=== PATIENT | female | born 1965 | race Caucasian/White ===

== ENCOUNTER 2016-09-02 07:28 | Emergency (ER) ==
[2016-09-02 07:38] VITALS: BP 130/90
[2016-09-02 08:11] LABS: MANUAL DIFF NEEDED? NO; URINE CULTURE PL NEEDED? NO; URINE SOURCE VOIDED
[2016-09-02 08:13] LABS: BASO% 0.8 % (0.0-0.8); EOS# 0.29 X1000 (0.0-0.7); EOS% 3.5 % (0.0-10.0); HEMATOCRIT 41.6 % (37.0-47.0); HEMOGLOBIN 14.5 g/dL (12.0-16.0); IMM GRAN# 0.08 X1000 (0.0-0.04); LYMPH# 1.32 X1000 (1.2-3.4); LYMPH% 15.8 % (20.5-51.1); MCH 34.1 PG (27-31); MCHC 34.9 g/dL (33-37); MCV 97.9 FL (81-99); MONO# 0.68 X1000 (0.11-0.59); MONO% 8.1 % (1.7-9.3); MPV 8.3 FL (7.4-10.4); NEUT% 70.8 % (42.2-75.2); PLT 351 X1000 (130-400); RBC 4.25 XMIL (4.2-5.4)
[2016-09-02 08:22] LABS: UR AMPHETAMINES QUAL NONE DETECTED (NONE DETECT); UR BARBITUATES QUAL NONE DETECTED (NONE DETECT); UR BENZODIAZEPIN QUAL NONE DETECTED (NONE DETECT); UR CANNABINOIDS QUAL NONE DETECTED (NONE DETECT); UR COCAINE QUAL NONE DETECTED (NONE DETECT); UR MDMA QUAL NONE DETECTED (NONE DETECT); UR METHADONE QUAL NONE DETECTED (NONE DETECT); UR METHAMPHETAMINE QUAL NONE DETECTED (NONE DETECT); UR OPIATES QUAL NONE DETECTED (NONE DETECT); UR OXYCODONE QUAL NONE DETECTED (NONE DETECT); UR PCP QUAL NONE DETECTED (NONE DETECT); UR TCA QUAL NONE DETECTED (NONE DETECT)
[2016-09-02 08:25] LABS: BILIRUBIN URINE NEGATIVE (NEGATIVE); BLOOD URINE NEGATIVE (NEGATIVE); CLARITY CLEAR (CLEAR); COLOR YELLOW; GLUCOSE URINE NEGATIVE (NEGATIVE); LEUKOCYTES URINE NEGATIVE (NEGATIVE); NITRITE URINE NEGATIVE (NEGATIVE); PROTEIN URINE NEGATIVE (NEGATIVE); SP GRAVITY URINE 1.015; UROBILINOGEN URINE NORMAL
[2016-09-02 08:26] LABS: URINE EPITHELIAL CELLS <10 /HPF (<10); URINE WBC <10 /HPF (<10)
[2016-09-02 08:37] LABS: ACETAMINOPHEN < 1.2 ug/mL (10-30); AGAP 11; ALBUMIN 5.2 g/dL (3.5-5.0); ALKALINE PHOSPHATASE 79 U/L (32-104); BUN 6 mg/dL (8-22); CALCIUM 10.4 mg/dL (8.8-10.2); CHLORIDE 90 mmol/L (98-107); COSMO 256; GOT 33 U/L (10-30); GPT 16 U/L (10-36); POTASSIUM 3.4 mmol/L (3.5-5.1); SODIUM 129 mmol/L (136-145); TCO2 29 mmol/L (25-35); TOTAL PROTEIN 8.3 g/dL (6.3-8.3)
[2016-09-02] MEDS ORDERED: KLOR-CON PO ONE (08:54)
--- NOTE | 2016-09-02 09:00 | PROVIDER DOCUMENTATION ---
HPI-General Adult - General Chief Complaint: Withdrawals Stated Complaint: OPIATE WITHDRAWLS Time Seen by Provider: 09/02/16 07:32 Source: patient Allergies/Adverse Reactions: Patient Allergies Allergy/AdvReac Type Severity Reaction Status Date / Time No Known Allergies Allergy Verified 09/02/16 07:38 Home Medications: Levothyroxine Sodium [Synthroid] 200 mcg PO DAILY 09/02/16 Sertraline HCl [Zoloft] 200 mg PO DAILY 09/02/16 Topiramate [Topamax] 50 mg PO DAILY 09/02/16 - History of Present Illness -Gen Adult Nature of Presenting Problems: patient is a 51 y/o F that presents with withdrawaling from Lortabs. Patient 6 days ago ran out, has been taking Lortabs between 10 to 20 years. She reports alexia between , her dentist, and buying them in the street. She stopped them 6 days ago, since has had nausea,abdominal pain, weakness, and tremors. wants help to get off them permanently Location of Pain/Injury: reports: generalized Pain Radiation: reports: no radiation Quality of Pain: reports: aching Severity: reports: moderate Onset/Duration: reports: gradual, 6 days ago Timing: reports: still present, constant Context/Activities at Onset: reports: other (withdrawal from Lortabs) Modifying Factors: improves with: nothing Associated Symptoms: reports: nausea, weakness, other (tremors). denies: back/ neck pain, diarrhea, dizziness, fever/chills, genitourinary problems, vomiting Similar Symptoms Previously?: No Recently seen or treated by another doctor?: No Review of Systems - Adult - REVIEW OF SYSTEMS - ADULT Constitutional: denies: chills, fever Eyes: denies: decreased vision, blurred vision, double vision Ears, Nose, Mouth & Throat: denies: ear pain, sinus problem, throat pain, throat swelling Cardiovascular: denies: chest pain, palpitations, syncope Respiratory: denies: cough, shortness of breath, wheezing Gastrointestinal: reports: abdominal pain, nausea. denies: diarrhea, vomiting Genitourinary: denies: dysuria, frequency, hematuria Musculoskeletal: reports: muscle aches, muscle weakness Integumentary: reports: no symptoms reported Neurological: reports: tremors. denies: numbness, slurred speech Psychiatric: reports: no symptoms reported Endocrine: reports: no symptoms reported Hematologic/Lymphatic: reports: no symptoms reported Allergic/Immunologic: reports: no symptoms reported All Other Systems: Reviewed and Negative Past History - Adult - PAST MEDICAL HISTORY-ADULT Review of Records: reports: Nursing Assessment Review, Medications Reviewed Respiratory: reports: COPD Musculoskeletal: reports: fibromyalgia Neurological: reports: headaches/migraines, other (fibromyal) Endocrine/Immune: reports: thyroid disorder - PRIOR SURGERIES/PROCEDURES Surgical/Procedure History: reports: hysterectomy, breast - IMMUNIZATION STATUS Childhood Immunizations: UTD Flu Vaccine: See Nurse Assessment - FAMILY HISTORY Family History: reviewed, not pertinent - SOCIAL HISTORY Smoking: cigarettes, less than 1 pack/day Substance Use: opiates Living Situation: family Physical Exam-General - PHYSICAL EXAM-ADULT Initial Vital Signs Reviewed: Yes - CONSTITUTIONAL General Appearance: alert, no apparent distress - EYES Eyes: PERRL/EOMI, pink conjunctivae - HEAD, EARS, NOSE, MOUTH & THROAT HENMT: normocephalic/atraumatic, moist mucous membranes, normal ENT inspection - NECK Neck: non-tender, full range of motion, normal inspection - RESPIRATORY Respiratory: lungs clear, normal breath sounds, no respiratory distress, no accessory muscle use - CARDIOVASCULAR Cardiovascular: normal peripheral pulses, regular rate, rhythm, no murmur. negative: tachycardia - GASTROINTESTINAL (ABDOMEN) Abdominal Exam: normal bowel sounds, non tender, soft, no organomegaly - MUSCULOSKELETAL Back Exam: normal inspection, no vertebral tenderness Extremity: normal range of motion, normal inspection, no calf tenderness, normal capillary refill - SKIN Integumentary: normal color, normal turgor, warm/dry - NEUROLOGIC Neurologic: grossly normal, no motor/sensory deficits - PSYCHIATRIC Psych/Mental Status: normal mood/affect, normal thought content, normal thought process, oriented x 3 Progress - PLAN OF CARE/RESULTS Progress/Plan/Lab Results: Vital Signs Temp Pulse Resp BP Pulse Ox 09/02/16 07:34 97.7 F 84 18 130/90 100 No Known Allergies Allergy (Verified 09/02/16 07:38) Levothyroxine Sodium [Synthroid] 200 mcg PO DAILY 09/02/16 Sertraline HCl [Zoloft] 200 mg PO DAILY 09/02/16 Topiramate [Topamax] 50 mg PO DAILY 09/02/16 Laboratory 09/02/16 09/02/16 09/02/16 08:00 08:00 08:00 WBC 8.36 RBC 4.25 Hgb 14.5 Hct 41.6 MCV 97.9 MCH 34.1 H MCHC 34.9 RDW Std Deviation 11.1 L Plt Count 351 MPV 8.3 Immature Gran % (Auto) 1.0 H Neut % (Auto) 70.8 Lymph % (Auto) 15.8 L [place] % (Auto) 8.1 Eos % (Auto) 3.5 Baso % (Auto) 0.8 Immature Gran # (Auto) 0.08 H Neut # (Auto) 5.92 Lymph # (Auto) 1.32 [place] # (Auto) 0.68 H Eos # (Auto) 0.29 Baso # (Auto) 0.07 Sodium Potassium Chloride Carbon Dioxide Anion Gap BUN Creatinine Estimated GFR/1.73 m2 BUN/Creatinine Ratio Glucose Calculated Osmolality Calcium Total Bilirubin AST ALT Alkaline Phosphatase Total Protein Albumin Globulin Albumin/Globulin Ratio Urine Source VOIDED Urine Color YELLOW Urine Clarity CLEAR Urine pH 8.0 Ur Specific [place] 1.015 Urine Protein NEGATIVE Urine Ketones NEGATIVE Urine Blood NEGATIVE Urine Nitrite NEGATIVE Urine Bilirubin NEGATIVE Urine Urobilinogen NORMAL Urine Microscopic RBC Not Reportable Urine WBC NEGATIVE Urine Microscopic WBC <10 Ur Epithelial Cells <10 Urine Glucose NEGATIVE Salicylates Urine Opiates Screen NONE DETECTED Ur Oxycodone Screen NONE DETECTED Urine Methadone Screen NONE DETECTED Acetaminophen Ur Barbituates Screen NONE DETECTED Ur Tricyclics Screen NONE DETECTED Ur Phencyclidine Scrn NONE DETECTED Ur Amphetamines Screen NONE DETECTED U Methamphetamines Scrn NONE DETECTED Urine MDMA Screen NONE DETECTED U Benzodiazepines Scrn NONE DETECTED Urine Cocaine Screen NONE DETECTED U Cannabinoids Screen NONE DETECTED Plasma/Serum Ethyl Alc 09/02/16 09/02/16 08:00 08:00 WBC RBC Hgb Hct MCV MCH MCHC RDW Std Deviation Plt Count MPV Immature Gran % (Auto) Neut % (Auto) Lymph % (Auto) [place] % (Auto) Eos % (Auto) Baso % (Auto) Immature Gran # (Auto) Neut # (Auto) Lymph # (Auto) [place] # (Auto) Eos # (Auto) Baso # (Auto) Sodium 129 L Potassium 3.4 L Chloride 90 L Carbon Dioxide 29 Anion Gap 11 BUN 6 L Creatinine 0.8 Estimated GFR/1.73 m2 > 60 BUN/Creatinine Ratio 8 Glucose 89 Calculated Osmolality 256 Calcium 10.4 H Total Bilirubin 0.50 AST 33 H ALT 16 Alkaline Phosphatase 79 Total Protein 8.3 Albumin 5.2 H Globulin 3.0 Albumin/Globulin Ratio 2.0 Urine Source Urine Color Urine Clarity Urine pH Ur Specific [place] Urine Protein Urine Ketones Urine Blood Urine Nitrite Urine Bilirubin Urine Urobilinogen Urine Microscopic RBC Urine WBC Urine Microscopic WBC Ur Epithelial Cells Urine Glucose Salicylates < 3.00 L Urine Opiates Screen Ur Oxycodone Screen Urine Methadone Screen Acetaminophen < 1.2 L Ur Barbituates Screen Ur Tricyclics Screen Ur Phencyclidine Scrn Ur Amphetamines Screen U Methamphetamines Scrn Urine MDMA Screen U Benzodiazepines Scrn Urine Cocaine Screen U Cannabinoids Screen Plasma/Serum Ethyl Alc Orders Category Date Time Status ACETAMINOPHEN [TDM] Stat Lab 09/02/16 08:00 Completed ALCOHOL BLOOD Stat Lab 09/02/16 08:00 Completed CBC WITH ELECTRONIC DIFF [HEME] Stat Lab 09/02/16 08:00 Completed COMPREHENSIVE METABOLIC PANEL [CHEM] Stat Lab 09/02/16 08:00 Completed FREE T4 Stat Lab 09/02/16 08:00 Received SALICYLATES [TDM] Stat Lab 09/02/16 08:00 Completed TSH Stat Lab 09/02/16 08:[address] W/POSS RFLX CULT [URINALYSIS] Stat Lab 09/02/16 08:00 [address] DRUG SCREEN [address] Stat Lab 09/02/16 08:00 Completed VITAMIN B12 Stat Lab 09/02/16 08:00 Received Potassium Chloride E.r. [Klor-Con] Med 09/02/16 08:54 Discontinued 40 meq PO NOW ONE pt will be d/c home to f/u with with [facility]. patient requested Suboxone, pt was advised that the ER doesn't write suboxone. Pt understood she was clinically stable. Departure - Departure Time of Disposition Order: 09:09 DIAGNOSIS: Opiate withdrawal, Opiate withdrawal, Opiate addiction Disposition: HOME 01 Certified Medical Emergency: Emergent Condition: Stable Additional Instructions: follow up with [facility], call today ED Follow Up Instructions: You have been treated by a care provider in the Emergency Department. These instructions are being provided to you so you can have an understanding of how to care for yourself upon discharge. Upon discharge from the Emergency Department, you are responsible for making arrangements for follow-up care by a physician of your choice. Take all prescribed medications as directed. Return to the Emergency Department immediately for any new or worsening symptoms. You may call the Physician Referral phone number at [phone] to obtain a list of Physicians who are taking new patients. Referrals: Aristeo Ott MD [Primary Care Provider] - (as) Instructions: Finding Treatment for Addiction, Opioid Use Disorder Attestation - Scribe Verification/Attestation Scribe:: Lui Ayala Acting as Scribe for:: Magda Still Scribe documention review:: This chart was documented by a scribe and accurately reflects the service the provider performed and the decisions made by the provider. Physician Attestation - Physician Attestation I, the provider, attest to the following statement:: Magda Still Physician documentation Attestation:: This documentation recorded by the scribe accurately reflects the service I personally performed and the decisions made by me.
[2016-09-02 09:11] LABS: FREE T4 0.71 ng/dL (0.93-1.70)
== END 2016-09-02 09:58 | disposition home or self-care (01) ==
LOC: P.ED 07:28
DX: F11.23 Opioid dependence with withdrawal (principal); T40.2X5A Adverse effect of other opioids, initial encounter; R11.0 Nausea; R10.84 Generalized abdominal pain; R25.1 Tremor, unspecified; M79.1 Myalgia; M62.81 Muscle weakness (generalized); J44.9 Chronic obstructive pulmonary disease, unspecified; M79.7 Fibromyalgia; E07.9 Disorder of thyroid, unspecified; F17.210 Nicotine dependence, cigarettes, uncomplicated; Z79.899 Other long term (current) drug therapy
CPT/HCPCS: 80053; 81001; 82607; 84439; 84443; 85025; 99283; G0480